=== PATIENT | male | born 1960 | race African-American/Black ===

== ENCOUNTER → 2017-08-03 | Outpatient (CLI) | payer OTHER ==
--- NOTE | ~2017-08-03 | US115 ---
[facility] A Service of [facility] & [facility] RADIOLOGY TEXT RESULTS PATIENT: JORDEN AGRAWAL LOCATION: [facility] : 64 UNIT #: [id number] AGE: [address]: Kee Theodore MD SEX: M ORDER DR: [id number] [facility] [address] [place], [place] [address] [id number] O MR#: [id number] Acc #: [id number] NAME: JORDEN AGRAWAL : 1960 SEX: M STUDY DATE/TIME: 08/03/2017 14:58 UNIT: CGUS ROOM: STUDY DESCRIPTION: US Scrotum and Contents Attending Physician: Kee Theodore M.D. Referring Physician: Kee Theodore M.D. Ordering Physician: Kee Theodore M.D. Primary Care Physician: Elier Okeefe MEDICAL IMAGING REPORT This report is preliminary unless electronic signature is present EXAM Scrotal ultrasound INDICATIONS Left scrotal swelling for the past 6 months. PROCEDURE Saleem-scale and Doppler imaging scrotum scrotal contents. Comparison: None FINDINGS Right testicle measures 2.7 x 2.4 x 4.8 cm. No mass. Small right hydrocele. Left testicle measures 3.1 x 3.1 x 4.9 cm. No mass. Large left hydrocele. IMPRESSION 1. Large left and small right hydrocele. 2. Normal appearance of the testicles. Dictated by... Roger Hernández M.D. THIS IS AN ELECTRONICALLY VERIFIED REPORT Roger Hernández M.D. at 08/05/2017 12:12 PM EED/rasheed TD: 08/04/2017 08:25 JOB #: [id number] MEDICAL IMAGING REPORT [facility] A Service [facility] RADIOLOGY TEXT RESULTS PATIENT: JORDEN AGRAWAL LOCATION: [facility] : 64 UNIT #: [id number] AGE: [address]: Kee Theodore MD SEX: M ORDER DR: Page 1 of 1 COPY
== END | disposition home or self-care (01) ==
LOC: CGUS 14:35
DX: N50.89 Other specified disorders of the male genital organs (principal); N43.3 Hydrocele, unspecified
CPT/HCPCS: 76870